=== PATIENT | female | born 2000 ===

== ENCOUNTER 2025-06-25 05:48 | Emergency (ER) | payer SELFPAY ==
[2025-06-25 05:51] VITALS: BP 134/79
--- NOTE | 2025-06-25 06:02 | ED.GENMED ---
History of Present Illness
General
Chief Complaint: Chest Pain
Time Seen by Provider: 06/25/25 06:02
History of Present Illness
History of Present Illness:
PAST MEDICAL HISTORY AND REVIEW OF OLD RECORDS
- No significant past medical history however the patient did have tonsillectomy in the past.
Note:
CHIEF COMPLAINT(S)
Left-sided chest discomfort.
HISTORY OF PRESENT ILLNESS
The patient is a 24-year-old female who presented with left-sided chest discomfort. She reports that the symptoms began before a recent long trip and have persisted since returning yesterday. The pain is localized to a relatively small area on the
left side and is associated with a vague numbness. The pain intensifies slightly with deep breaths. She is a heavy smoker. She expressed reluctance to allow palpation of the anterior chest wall due to the severity of the pain. She also reports pain
in the left upper extremity but maintains a good active range of motion in the left shoulder.
SOCIAL HISTORY
The patient is a heavy smoker.
PHYSICAL EXAM
General: Alert, no acute distress but has rather significant pain when I palpate the left chest wall
Skin: Warm, dry.
Head: Normocephalic, atraumatic.
Neck: Supple, trachea midline.
Eyes, Ears, Nose, Mouth, and Throat: Oral mucosa moist.
Cardiovascular: Normal peripheral perfusion, No edema. Normal heart sounds
Respiratory: Respirations are non-labored. Normal breath sounds.
Gastrointestinal: Abdomen nondistended.
Back: Normal range of motion, Normal alignment.
Musculoskeletal: Severe tenderness to palpation of the anterior chest wall, normal range of motion in the left upper extremity but reports pain.
Neurological: Alert and oriented to person, place, time, and situation, No focal neurological deficit observed.
Psychiatric: Cooperative, appropriate mood & affect.
PROBLEM LIST
- Acute left-sided chest discomfort
- Severe tenderness to palpation of the anterior chest wall
PLAN
- Obtain D-Dimer test
- Perform chest X-ray
DIFFERENTIAL DIAGNOSIS
The Differential Diagnosis includes, in no particular order and is not limited to:
1. Costochondritis
2. Musculoskeletal strain
3. Pulmonary embolism
4. Pneumothorax
5. Myocardial ischemia
6. Pleuritis
7. Gastroesophageal reflux disease (GERD)
8. Herpes zoster
9. Panic disorder
10. Peptic ulcer disease
RADIOLOGY
- Chest x-ray shows no acute abnormality
EKG
- Sinus 60, normal axis, no acute ST abnormality
LABS
- D-dimer less than 0.27
UPDATE
SUMMARY OF ENCOUNTER
The patient, a 31-year-old female, presented with left-sided chest discomfort. Following evaluation in the emergency department, a D-Dimer test was ordered to rule out a blood clot, and a chest X-ray was obtained. The D-Dimer test returned negative,
effectively ruling out a pulmonary embolism. The chest X-ray was independently reviewed by me and showed no abnormalities, such as pneumothorax or fluid collection. The vital signs remained stable throughout the visit, and an EKG was performed with
normal results. It was assessed that the pain might be musculoskeletal in nature, possibly originating from the chest wall, muscle, or fascia.
DISPOSITION
Discharge.
ASSESSMENT
The patients symptoms are most likely due to musculoskeletal issues, such as costochondritis or a strain, given the negative findings for serious conditions.
PLAN
Recommend the use of ibuprofen (Motrin) to manage inflammation and pain, as well as outpatient follow-up with a primary care physician if symptoms persist or worsen.
INDEPENDENT REVIEW OF LABS AND INTERPRETATION OF TESTS
My independent review of the D-Dimer test is negative for any indication of a blood clot.
My independent interpretation of the chest X-ray shows no abnormal findings, such as pneumothorax or fluid collection.
PATIENT EDUCATION AND COUNSELING
Discussed with the patient that the likely cause of her pain is musculoskeletal related to the chest wall and provided reassurance about the negative test results for more serious conditions. Advised the patient on the use of ibuprofen for pain
management.
FOLLOW-UP INSTRUCTIONS
Advised to follow up with a primary care physician if symptoms persist or worsen.
MEDICATION RECONCILIATION
A recommendation was made for the use of ibuprofen (Motrin) to help decrease inflammation and manage pain.
MEDICAL DECISION MAKING
-Number and Complexity of Problems Addressed: Chronic conditions affecting care include the patient�s smoking history which may contribute to cardiovascular or pulmonary issues. Differential diagnosis includes costochondritis, musculoskeletal
strain, pulmonary embolism, pneumothorax, myocardial ischemia, pleuritis, gastroesophageal reflux disease (GERD), herpes zoster, panic disorder, and peptic ulcer disease.
-Data:
Category 1
Tests ordered include a D-Dimer test and a chest X-ray. The D-Dimer test was reviewed and interpreted as normal, ruling out a blood clot. The chest X-ray was independently reviewed and found to be normal.
Category 3
Managed independently with an interpretation of diagnostic tests and clinical assessment. No specialist consultations documented.
-Risk:
Prescription medication was recommended for pain management, specifically ibuprofen. The decision not to proceed with further invasive testing was made based on negative lab and imaging results.
Consideration of Admission/Observation: Escalation of care including admission/observation was considered given the complexity and risk of the patients presenting complaint, exam findings, and/or their underlying comorbidities. However, ultimately I
feel the patient is safe for outpatient management with close follow-up. Reasoning: Work-up reassuring, does not reveal any acute life/organ-threatening processes, patients symptoms well controlled upon reevaluation, reexamination is reassuring,
vitals are stable, patient agreeable with discharge, reliable for follow-up.
DIAGNOSIS
Musculoskeletal chest pain, likely costochondritis (ICD-10: M94.0).
Phy Exam
Physical Exam
Physical Exam:
See HPI
Scores
Heart Score for Chest Pain Patients
STEMI patient?: Not applicable
Course
Orders/Labs/Results
Orders:
Orders
06/25/25 05:54
ECG [Electrocardiogram (*1)] Urgent
Reason for Study: Chest Pain
EKG- Treatment ONCE
06/25/25 06:13
CR Chest - 2 Views Urgent
Comment:
Reason For Exam: L chest pain; hCG not needed
06/25/25 06:21
D-Dimer Urgent
Vital Signs
Initial and Last Documented VS:
Initial Vital Signs
Temp Pulse Resp BP Pulse Ox
36.7 C 65 16 134/79 100
06/25/25 05:51 06/25/25 05:51 06/25/25 05:51 06/25/25 05:51 06/25/25 05:51
Last Documented Vital Signs
Temp Pulse Resp BP Pulse Ox
36.7 C 62 23 134/79 99
06/25/25 05:51 06/25/25 06:45 06/25/25 06:45 06/25/25 05:51 06/25/25 06:45
*Pulse Oximetry
SaO2: 100
Oxygen Mode of Delivery: Room air
Patient hypoxic: no
*Critical Care Note
Total Time (30-74mins, 75-104mins- exclusive of procedures): Not Applicable
ED Attending Note
-
Portions of this chart may have been created with voice recognition software.� Occasional wrong word or��sound alike� substitutions may have occurred due to the inherent limitations of voice recognition software.
Discharge Plan
Departure
Patient Disposition: Home (Routine Discharge)
Date of Disposition: 06/25/25
Time of Disposition: 07:56
Patient with high blood pressure during this ER visit?: Yes
Discharge Problem:
Chest pain
Instructions: Costochondritis (DC), BLOOD PRESSURE
Prescriptions:
No Action
No Current Medications
0
Activity Restrictions/Additional Instructions:
Blood clot screening test (D-dimer) showed no sign of blood clot. I see no abnormality on the chest x-ray. I recommend 3-4 [id number] ibuprofen (Motrin) every 8 hours with food for a few days. Return here if worse. Your EKG is normal. The
term that is used for inflammation/pain to the chest wall is costochondritis�the cause of this is usually unclear.
Interventions
Interventions:
*Risk Screen - Suicide Last Done: 06/25/25 05:51
*General Assessment Last Done: 06/25/25 06:16
*Neglect/Abuse Screening Last Done: 06/25/25 05:51
*ED- Fall Risk Assessment Last Done: 06/25/25 05:51
*ED COVID-19 Vaccine History Last Done: 06/25/25 05:51
ED- Cardiac Assessment Last Done: 06/25/25 06:24
Discharge Date and Time
Print Language: [place]IZ[place]
[2025-06-25 06:16] VITALS: BMI 34.1
[2025-06-25 07:49] LABS: D-Dimer < 0.27 ug/mlFEU (0.00-0.50)
== END 2025-06-25 08:21 | disposition home or self-care (01) ==
LOC: EMR 05:48
PROVIDERS: EMERGENCY PHYSICIAN Emergency Medicine
DX: R07.89 Other chest pain (principal); R20.0 Anesthesia of skin; M79.642 Pain in left hand; M25.512 Pain in left shoulder; F17.200 Nicotine dependence, unspecified, uncomplicated
CPT/HCPCS: 99283; 71046; 85379; 93005